=== PATIENT | male | born 1995 | race African-American/Black ===

== ENCOUNTER 2020-04-15 19:12 | Emergency (ER) | payer BC ==
[~2020-04-15] VITALS: Ht 188 cm; Wt 120.5 kg
[2020-04-15 19:16] VITALS: TEMP 98.4
[2020-04-15 20:01] LABS: BASO % 0.3 % (0.0-2.0); EOS # 0.2 (0.0-0.7); EOS % 2.7 % (0-4.0); GRAN # 5.1 (1.4-6.5); GRAN % 69.1 % (42.2-75.2); HEMATOCRIT 44.6 % (42.0-52.0); HEMOGLOBIN 15.6 g/dl (13.5-18.0); LYMPH # 1.5 (1.2-3.4); LYMPH % 20.4 % (20.0-51.0); MEAN CELL VOLUME 93 fl (80.0-100.0); MEAN CORPUSCULAR HEMOGLOBIN 32 pg (27.0-31.0); MEAN CORPUSCULAR HGB CONC 35 g/dl (33.0-37.0); MEAN PLATELET VOLUME 8.9 fl (7.4-10.4); MONO # 0.5 (0.1-0.6); MONO % 7.2 % (1.7-9.3); PLATELET COUNT 278 K/mm3 (130-400); RED BLOOD COUNT 4.82 M/mm3 (4.20-5.60); REDCELL DISTRIBUTION WIDTH-CV 12.7 % (11.5-14.5)
[2020-04-15 20:11] LABS: ALANINE AMINOTRANSFERASE 60 U/L (4-49); ALKALINE PHOSPHATASE 91 U/L (50-136); ANION GAP 9 mmol/L (7-16); AST,SGOT 70 U/L (15-37); BILIRUBIN,TOTAL 0.5 mg/dL (0.0-1.0); BLOOD UREA NITROGEN 8 mg/dL (9-20); C-REACTIVE PROTEIN 2.9 mg/dL (0.0-0.9); CALCIUM 8.6 mg/dL (8.4-10.2); CARBON DIOXIDE 26 mmol/L (22-30); CHLORIDE 105 mmol/L (98-107); CREATININE, serum 0.75 (0.66-1.25); GLUCOSE 114 mg/dL (74-106); POTASSIUM 3.6 mmol/L (3.4-5.0); SODIUM 140 mmol/L (137-145); TOTAL PROTEIN 7.8 gm/dL (6.4-8.2)
[2020-04-15 20:28] LABS: TROPONIN-I < 0.012 ng/mL (0.000-0.035)
[2020-04-15 21:02] VITALS: BP 133/78; PULSE 86
== END 2020-04-15 21:10 | disposition home or self-care (01) ==
LOC: COL.ER 19:12
PROVIDERS: Emergency Medicine
DX: R07.81 Pleurodynia (principal); F17.210 Nicotine dependence, cigarettes, uncomplicated
CPT/HCPCS: J1885; J2405; J3010; J7030

== ENCOUNTER 2020-11-09 21:27 | Emergency (ER) | payer BC ==
[~2020-11-09] VITALS: Ht 188 cm; Wt 125.0 kg
[2020-11-09 21:49] VITALS: TEMP 97.3
[2020-11-09 23:40] VITALS: BP 136/86; PULSE 92
== END 2020-11-09 23:31 | disposition home or self-care (01) ==
LOC: COL.ER 21:27
DX: S09.90XA Unspecified injury of head, initial encounter (principal); S00.531A Contusion of lip, initial encounter; S00.81XA Abrasion of other part of head, initial encounter; R07.81 Pleurodynia; F17.290 Nicotine dependence, other tobacco product, uncomplicated; W10.9XXA Fall (on) (from) unspecified stairs and steps, initial encounter

== ENCOUNTER 2020-11-13 07:38 | Emergency (ER) | payer BC ==
[~2020-11-13] VITALS: Ht 188 cm; Wt 118.2 kg
[2020-11-13 07:42] VITALS: BP 156/124; TEMP 98.2
[2020-11-13] MEDS ORDERED: AMOXICILLIN 8751 TAB PO (07:55)
[2020-11-13 08:08] VITALS: PULSE 96
== END 2020-11-13 08:08 | disposition home or self-care (01) ==
LOC: COL.ER 07:38
DX: S09.90XD Unspecified injury of head, subsequent encounter (principal); S00.531D Contusion of lip, subsequent encounter; L08.9 Local infection of the skin and subcutaneous tissue, unspecified; R09.1 Pleurisy; F17.210 Nicotine dependence, cigarettes, uncomplicated; W10.9XXD Fall (on) (from) unspecified stairs and steps, subsequent encounter

== ENCOUNTER 2021-05-10 07:14 | Inpatient (IN) | payer BC ==
[~2021-05-10] VITALS: Ht 188 cm; Wt 120.5 kg
[~2021-05-10 07:14] MED LIST: AMOXICILLIN 8751 TAB PO
[2021-05-10] MEDS ORDERED: PROTONIX 40MG T40 MG PO (07:23)
[2021-05-10] MEDS ORDERED: PRINZIDE 12.5 M1 TA1 PO (07:24)
[2021-05-10 07:55] LABS: BASO % 0.2 % (0.0-2.0); EOS # 0.1 (0.0-0.7); GRAN # 4.6 (1.4-6.5); GRAN % 71.2 % (42.2-75.2); HEMATOCRIT 43.5 % (42.0-52.0); HEMOGLOBIN 15.9 g/dl (13.5-18.0); LYMPH # 1.1 (1.2-3.4); LYMPH % 16.7 % (20.0-51.0); MEAN CELL VOLUME 91 fl (80.0-100.0); MEAN CORPUSCULAR HEMOGLOBIN 33 pg (27.0-31.0); MEAN CORPUSCULAR HGB CONC 37 g/dl (33.0-37.0); MEAN PLATELET VOLUME 9.7 fl (7.4-10.4); MONO # 0.6 (0.1-0.6); MONO % 9.4 % (1.7-9.3); PLATELET COUNT 173 K/mm3 (130-400); RED BLOOD COUNT 4.77 M/mm3 (4.20-5.60); REDCELL DISTRIBUTION WIDTH-CV 12.5 % (11.5-14.5)
[2021-05-10 08:10] LABS: ALBUMIN 4.5 gm/dL (3.5-5.0); BILIRUBIN,TOTAL 1.7 mg/dL (0.0-1.0); CALCIUM 9.3 mg/dL (8.4-10.2); CREATININE, serum 0.64 (0.66-1.25); POTASSIUM 3.8 mmol/L (3.4-5.0); TOTAL PROTEIN 8.5 gm/dL (6.4-8.2)
[2021-05-10 12:42] LABS: ALCOHOL(ethanol),MEDICAL < 10 mg/dL; CHOLESTEROL 183 mg/dL (120-200); CHOLESTEROL RISK RATIO 1.7; HDL CHOLESTEROL 106 mg/dL; LACTATE DEHYDROGENASE 816 U/L (313-618); LDL CHOLESTEROL 60 mg/dL; MAGNESIUM 1.1 mg/dL (1.6-2.3); TRIGLYCERIDE 87 mg/dL
[2021-05-10 13:06] LABS: INR 1.1 (0.8-3.0); PROTHROMBIN TIME 12.4 SECONDS (9.7-12.8)
[2021-05-10 13:15] LABS: PARTIAL THROMBOPLASTIN TIME 26.9 SECONDS (26.0-37.0)
[2021-05-10 15:44] VITALS: BP 158/108; PULSE 91; TEMP 100
[2021-05-10 17:43] VITALS: BP 158/99; PULSE 70; TEMP 97.7
[2021-05-10 21:30] VITALS: BP 157/109; PULSE 85; TEMP 98.2
[2021-05-10 23:46] VITALS: BP 131/111; PULSE 85; TEMP 99.4
[2021-05-11 03:07] VITALS: BP 142/84; PULSE 99; TEMP 99.2
--- NOTE | 2021-05-11 06:15 | NUR ---
Rested off and on this shift. Received ativan throughout the night for detox score of 6-10. Mild pain not requiring treatment. Remained NPO. Denied nausea/shortness of breath. Denies current needs. Call light in reach. Will monitor.
[2021-05-11 07:28] VITALS: BP 165/105; PULSE 88; TEMP 98.9
--- NOTE | 2021-05-11 07:38 | NUR ---
Patient is currently resting in bed. No signs of anxiety, tremors, diaphoresis, etc. Scored a 2 on CIWA due to BP being elevated. Patient given all his scheduled morning medications. Patient asking about food and when he will be able to eat. This RN informed the patient that the doctor would make that decision today when he saw him again.
[2021-05-11 07:45] LABS: BASO % 0.3 % (0.0-2.0); EOS # 0.3 (0.0-0.7); EOS % 4.9 % (0-4.0); GRAN % 69.7 % (42.2-75.2); HEMATOCRIT 39.9 % (42.0-52.0); LYMPH % 17.1 % (20.0-51.0); MEAN CORPUSCULAR HGB CONC 35 g/dl (33.0-37.0); MEAN PLATELET VOLUME 10.4 fl (7.4-10.4); MONO # 0.4 (0.1-0.6); MONO % 7.5 % (1.7-9.3); PLATELET COUNT 143 K/mm3 (130-400); RED BLOOD COUNT 4.15 M/mm3 (4.20-5.60); REDCELL DISTRIBUTION WIDTH-CV 12.3 % (11.5-14.5)
[2021-05-11 07:52] LABS: CREATININE, serum 0.61 (0.66-1.25); HEMOGLOBIN 13.8 g/dl (13.5-18.0); MAGNESIUM 1.9 mg/dL (1.6-2.3); MEAN CORPUSCULAR HEMOGLOBIN 33 pg (27.0-31.0); POTASSIUM 3.4 mmol/L (3.4-5.0)
[2021-05-11 07:53] LABS: MEAN CELL VOLUME 96 fl (80.0-100.0)
--- NOTE | 2021-05-11 09:53 | NUR ---
Initial visit; Patient thanked Director Of Retail Merchandising for looking in on him and offering God's blessings.
[2021-05-11 10:29] VITALS: BP 145/82; PULSE 84; TEMP 99
--- NOTE | 2021-05-11 11:20 | NUR ---
FATOU met with the patient to discuss discharge plan. The patient lives alone in [place]. He reports independence with ADLs and does not have any DME. The patient's PCP is Dr. Carson Lozano and he receives his medications from [facility]. He reports no difficulties obtaining his meds. The paient does not have a DPOA-HC, but he was interested in obtaining a form. FATOU provided. The patient states that he is not , does not have any children, and that his father, Americo Garcia, is still alive. He state that his mother is and that he really does not have a relationship with his father. He states that he has a girlfriend, Mary (ph#[phone]), and has her as his emergency contact. The patient plans to return home upon discharge. FATOU addressed the patient's alcohol use and discussed treatment. He has been drinking 750 ml of vodka on weekend nights. The patient reports that he is set up at [facility] and was suppose to have an appointment there today. He states that his next appointment there is next Friday. The patient was interested in a list of AA meetings in [place]. FATOU provided him with that list. He had no other concerns for FATOU and is hopeful that he can go home soon. No additional needs at this time. *Discharge plan: home*
[2021-05-11 14:43] VITALS: BP 157/44; PULSE 84; TEMP 99.1
[2021-05-11] MEDS ORDERED: ZOFRAN ODT4 MG PO (15:56)
[2021-05-11] MEDS ORDERED: ROXICODONE 55 MG/TAB PO (15:56)
--- NOTE | 2021-05-11 16:26 | NUR ---
Patient placed on low-fat diet. Only scoring on CIWA d/t elevated BP and slightly increased temp. Patient discharged and walked out of the facility by this RN at approx. 1620.
== END 2021-05-11 16:20 | disposition home or self-care (01) | DRG 439 ==
LOC: COL.ER 07:14 → MEDICAL 10:57
PROVIDERS: Family Medicine; Physician Assistant
DX: K85.20 Alcohol induced acute pancreatitis without necrosis or infection (principal); E87.1 Hypo-osmolality and hyponatremia; E66.9 Obesity, unspecified; Z68.33 Body mass index [BMI] 33.0-33.9, adult; F17.200 Nicotine dependence, unspecified, uncomplicated; K21.9 Gastro-esophageal reflux disease without esophagitis; I10 Essential (primary) hypertension; E16.2 Hypoglycemia, unspecified; E83.42 Hypomagnesemia; F10.10 Alcohol abuse, uncomplicated; Y90.0 Blood alcohol level of less than 20 mg/100 ml
CPT/HCPCS: 99223-AI; 99239; C9113; J1650; J2060; J2270; J2405; J3475; J7030; J7120; Q9967

== ENCOUNTER 2022-01-07 20:23 | Emergency (ER) | payer SELFPAY ==
[~2022-01-07] VITALS: Ht 188 cm; Wt 107.5 kg
[~2022-01-07 20:23] MED LIST changes: +PRINZIDE 12.5 M1 TA1 PO; +PROTONIX 40MG T40 MG PO; +ROXICODONE 55 MG/TAB PO; +ZOFRAN ODT4 MG PO
[2022-01-07 20:41] VITALS: TEMP 97.8
[2022-01-07 21:54] LABS: BASO % 0.6 % (0.0-2.0); EOS # 0.1 K/mm3 (0.0-0.7); EOS % 2.8 % (0.0-4.0); GRAN # 2.9 K/mm3 (1.4-6.5); GRAN % 61.9 % (42.2-75.2); HEMATOCRIT 46.1 % (42.0-52.0); HEMOGLOBIN 16.7 g/dl (13.5-18.0); LYMPH # 1.1 K/mm3 (1.2-3.4); LYMPH % 24.6 % (20.0-51.0); MEAN CELL VOLUME 93 fl (80.0-100.0); MEAN CORPUSCULAR HEMOGLOBIN 34 pg (27-31); MEAN CORPUSCULAR HGB CONC 36 g/dl (33.0-37.0); MEAN PLATELET VOLUME 8.5 fl (7.4-10.4); MONO # 0.5 K/mm3 (0.1-0.6); MONO % 9.9 % (1.7-9.3); PLATELET COUNT 190 K/mm3 (130-400); RED BLOOD COUNT 4.98 M/mm3 (4.20-5.60); REDCELL DISTRIBUTION WIDTH-CV 13.2 % (11.5-14.5)
[2022-01-07 22:07] LABS: ALANINE AMINOTRANSFERASE 98 U/L (0-55); ALBUMIN 3.5 gm/dL (3.5-5.0); ALKALINE PHOSPHATASE 103 U/L (40-150); ANION GAP 17 mmol/L (7-16); AST,SGOT 129 U/L (5-34); BLOOD UREA NITROGEN 7 mg/dL (9-21); CALCIUM 8.4 mg/dL (8.4-10.2); CARBON DIOXIDE 26 mmol/L (22-29); CHLORIDE 100 mmol/L (98-107); CREATININE, serum 0.72 mg/dL (0.72-1.25); GLUCOSE 98 mg/dL (70-99); POTASSIUM 3.3 mmol/L (3.5-4.5); SODIUM 143 mmol/L (136-145); TOTAL PROTEIN 7.5 gm/dL (6.2-8.1)
[2022-01-07 22:08] LABS: ACETAMINOPHEN < 1.0 ug/mL (10-30); SALICYLATE < 5.0 mg/dL (15.0-30.0)
[2022-01-07 22:09] LABS: ALCOHOL(ethanol),MEDICAL 341 mg/dL (0-10)
[2022-01-07 22:42] LABS: COLLECTION METHOD CLEAN CATCH
[2022-01-07 22:49] LABS: MUCOUS Present (NOT PRESENT); PH 6 (5-8); SQUAMOUS EPITHELIAL None Seen /hpf (0-10); URINE APPEARANCE Clear (CLEAR/HAZY); URINE BACTERIA None Seen /hpf (NONE SEEN); URINE BILIRUBIN Negative (NEGATIVE); URINE BLOOD Negative (NEGATIVE); URINE COLOR Yellow (YELLOW); URINE GLUCOSE Negative (NEGATIVE); URINE KETONE Trace (NEGATIVE); URINE LEUKOCYTE ESTERASE Negative (NEGATIVE); URINE NITRATE Negative (NEGATIVE); URINE PROTEIN(semi-quant) Negative (NEGATIVE); URINE RBC 0-2 /hpf (0-2); URINE UROBILINOGEN Negative (NEGATIVE)
[2022-01-07 22:57] LABS: TRICYCLIC ANTIDEPRESS URINE NEGATIVE
[2022-01-08 15:55] VITALS: BP 138/84; PULSE 96
== END 2022-01-08 15:55 | disposition home or self-care (01) ==
LOC: COL.ER 20:23
PROVIDERS: Physician Assistant
DX: R45.851 Suicidal ideations (principal); F10.129 Alcohol abuse with intoxication, unspecified; F17.200 Nicotine dependence, unspecified, uncomplicated; Z28.310 Unvaccinated for COVID-19; Y90.8 Blood alcohol level of 240 mg/100 ml or more

== ENCOUNTER 2022-02-26 18:57 | Emergency (ER) | payer SELFPAY ==
[~2022-02-26] VITALS: Ht 188 cm; Wt 106.8 kg
[2022-02-26 19:01] VITALS: TEMP 98.8
[2022-02-27 01:48] VITALS: BP 130/95; PULSE 68
== END 2022-02-27 01:51 | disposition home or self-care (01) ==
LOC: COL.ER 18:57
DX: F10.129 Alcohol abuse with intoxication, unspecified (principal); Z28.310 Unvaccinated for COVID-19

== ENCOUNTER 2023-02-02 15:20 | Emergency (ER) | payer SELFPAY ==
[~2023-02-02] VITALS: Ht 188 cm; Wt 106.8 kg
[2023-02-02 16:17] LABS: BASO % 0.4 % (0.0-2.0); EOS # 0.2 K/mm3 (0.0-0.7); EOS % 4.7 % (0.0-4.0); GRAN # 2.3 K/mm3 (1.4-6.5); GRAN % 46.9 % (42.2-75.2); HEMATOCRIT 42.4 % (42.0-52.0); HEMOGLOBIN 14.8 g/dl (13.5-18.0); LYMPH # 1.7 K/mm3 (1.2-3.4); LYMPH % 34.4 % (20.0-51.0); MEAN CELL VOLUME 97 fl (80.0-100.0); MEAN CORPUSCULAR HEMOGLOBIN 34 pg (27-31); MEAN CORPUSCULAR HGB CONC 35 g/dl (33.0-37.0); MONO # 0.7 K/mm3 (0.1-0.6); MONO % 13.4 % (1.7-9.3); PLATELET COUNT 255 K/mm3 (130-400); RED BLOOD COUNT 4.37 M/mm3 (4.20-5.60); REDCELL DISTRIBUTION WIDTH-CV 12.1 % (11.5-14.5)
[2023-02-02 16:40] LABS: ALBUMIN 3.6 gm/dL (3.5-5.0); BILIRUBIN,TOTAL 0.3 mg/dL (0.2-1.2); CALCIUM 8.6 mg/dL (8.4-10.2); CREATININE, serum 0.73 mg/dL (0.72-1.25); POTASSIUM 3.4 mmol/L (3.5-4.5); TOTAL PROTEIN 7.3 gm/dL (6.2-8.1)
[2023-02-02 16:57] LABS: COLLECTION METHOD CLEAN CATCH
[2023-02-02 17:03] LABS: SQUAMOUS EPITHELIAL None Seen /hpf (0-10); URINE BACTERIA None Seen /hpf (NONE SEEN); URINE RBC None Seen /hpf (0-2)
[2023-02-02 17:07] LABS: PH 5.5 (5.0-8.5); URINE APPEARANCE Clear (CLEAR/HAZY); URINE BLOOD Negative (NEGATIVE); URINE COLOR Yellow (YELLOW); URINE GLUCOSE Negative (NEGATIVE); URINE KETONE Negative (NEGATIVE); URINE NITRATE Negative (NEGATIVE); URINE PROTEIN(semi-quant) Negative (NEGATIVE); URINE UROBILINOGEN 0.2 E.U/dL (0.2-1.0)
[2023-02-02 17:10] LABS: TRICYCLIC ANTIDEPRESS URINE NEGATIVE
[2023-02-02 19:50] VITALS: BP 128/64; PULSE 74; TEMP 97.2
== END 2023-02-02 19:50 | disposition home or self-care (01) ==
LOC: COL.ER 15:20
PROVIDERS: Family Medicine
DX: F10.129 Alcohol abuse with intoxication, unspecified (principal); Y90.8 Blood alcohol level of 240 mg/100 ml or more; Z28.310 Unvaccinated for COVID-19
CPT/HCPCS: J7030

== ENCOUNTER 2023-08-25 22:22 | Inpatient (IN) | payer BC ==
[~2023-08-25] VITALS: Ht 188 cm; Wt 95.7 kg
[2023-08-25 22:53] LABS: BASO % 0.2 % (0.0-2.0); EOS % 0.1 % (0.0-4.0); GRAN # 8.2 K/mm3 (1.4-6.5); GRAN % 87.1 % (42.2-75.2); HEMATOCRIT 45.3 % (42.0-52.0); HEMOGLOBIN 16.2 g/dl (13.5-18.0); LYMPH # 0.6 K/mm3 (1.2-3.4); LYMPH % 6.4 % (20.0-51.0); MEAN CELL VOLUME 94 fl (80.0-100.0); MEAN CORPUSCULAR HEMOGLOBIN 34 pg (27-31); MEAN CORPUSCULAR HGB CONC 36 g/dl (33.0-37.0); MEAN PLATELET VOLUME 8.7 fl (7.4-10.4); MONO # 0.6 K/mm3 (0.1-0.6); PLATELET COUNT 201 K/mm3 (130-400); RED BLOOD COUNT 4.82 M/mm3 (4.20-5.60); REDCELL DISTRIBUTION WIDTH-CV 12.3 % (11.5-14.5)
[2023-08-25 23:39] LABS: ALBUMIN 3.9 gm/dL (3.5-5.0); BILIRUBIN,TOTAL 0.8 mg/dL (0.2-1.2); C-REACTIVE PROTEIN 0.85 mg/dL (0.00-0.50); CALCIUM 9.6 mg/dL (8.4-10.2); CREATININE, serum 0.71 mg/dL (0.72-1.25); POTASSIUM 3.9 mmol/L (3.5-4.5); TOTAL PROTEIN 7.8 gm/dL (6.2-8.1)
[2023-08-25 23:56] LABS: COLLECTION METHOD CLEAN CATCH
[2023-08-26] VITALS (16 sets, daily range): BP systolic 134–178; BP diastolic 83–114; PULSE 55–108; TEMP 97.7–102
[2023-08-26 00:15] LABS: PH 7.5 (5.0-8.5); URINE APPEARANCE Clear (CLEAR/HAZY); URINE COLOR Amber (YELLOW); URINE PROTEIN(semi-quant) 1+ (NEGATIVE)
[2023-08-26 00:16] LABS: MUCOUS Present (NOT PRESENT); SQUAMOUS EPITHELIAL 0-2 /hpf (0-10); URINE BACTERIA Occasional /hpf (NONE SEEN); URINE BLOOD Negative (NEGATIVE); URINE GLUCOSE Negative (NEGATIVE); URINE KETONE 3+ (NEGATIVE); URINE NITRATE Negative (NEGATIVE); URINE RBC None Seen /hpf (0-2); URINE UROBILINOGEN 0.2 E.U/dL (0.2-1.0)
[2023-08-26] MEDS ORDERED: ADDERALL20 MG PO (02:36)
--- NOTE | 2023-08-26 03:00 | NUR ---
Patient arrived to the floor at 0212 from ED per cart, with IV infusing well on left AC, admission assessment and intake done, medrec reviewed, reports pain to LUQ abdomen PS of 7/10, IV dilaudid given, hospital policies orientated, call light and personal items within reach, will continue to monitor.
--- NOTE | 2023-08-26 04:31 | NUR ---
Called Chicho,the HEALTHCARE APPLICATIONS ANALYST d/t patient's blood pressure is still high 172/84, still complaining of pain, received an order for dilaudid 1mg now.
[2023-08-26 06:54] LABS: INR 1.1 (0.8-3.0); PROTHROMBIN TIME 11.6 SECONDS (9.7-12.8)
[2023-08-26 06:59] LABS: PARTIAL THROMBOPLASTIN TIME 29.9 SECONDS (26.0-37.0)
[2023-08-26 07:13] LABS: ALBUMIN 3.3 gm/dL (3.5-5.0); BILIRUBIN,TOTAL 1.1 mg/dL (0.2-1.2); CREATININE, serum 0.66 mg/dL (0.72-1.25); MAGNESIUM 1.6 mg/dL (1.6-2.6); POTASSIUM 3.8 mmol/L (3.5-4.5); TOTAL PROTEIN 6.9 gm/dL (6.2-8.1)
--- NOTE | 2023-08-26 07:25 | NUR ---
Patient complained of pain to LUQ radiating to his back, PS of 10/10, medicated with IV dilaudid. He also complained of nausea, medicated with zofran. Report given to CASSIE Love.
--- NOTE | 2023-08-26 10:28 | NUR ---
PT RESTING IN BED WITH PAIN 6/10 IN LLQ. PAIN MEDICATION PROVIDED PER EMAR. PT UP TO BATHROOM WITH STEADY GAIT. PT REMAINS NPO. WILL CONTINUE TO MONITOR.
--- NOTE | 2023-08-26 11:04 | NUR ---
D: Initial visit: Knot Cutter stopped by room on rounds. Pt was resting and content. A: Pt was very tired and stated that he is trying to rest up and get better. No other needs right now. P: Knot Cutter informed pt that if he needed anything to let his nurse know. Knot Cutter will follow up as needed.
--- NOTE | 2023-08-26 14:58 | NUR ---
DISCUSSED WITH DR. ESCAMILLA PT CONTINUED PAIN DESPITE FREQUENT PRN DILAUDID. ORDERS TO D/C DILAUDID AND ORDER MORPHINE 2 MG Q4 PRN. DOSE PROVIDED. WILL CONTINUE TO MONITOR.
--- NOTE | 2023-08-26 16:28 | NUR ---
floorworker distributor was notified patient would like to speak with addiction social worker regarding resources for alcohol addiction. SW met with patient to discuss discharge planning. Patient lives in [place] and expressed the best point of contact is his boss, Felipe, P# [phone]. PCP is Dr. Lozano, pharmacy [facility]. No issues affording medications at this time. [facility] insurance. Patient does not have a DPOA-HC and does not wish to complete one at this time. Patient has no DME. Patient was independent prior to hospitalization. Patient uses [employer] or walks to and from work/appointments. Patient would like to return home at time of discharge. Patient's pain increased and wanted to wait to speak about alcohol addiction options. SW will follow up with patient on resources in the area. Discharge Plan: Home
--- NOTE | 2023-08-26 19:04 | NUR ---
report recieved from mia mcfarlane. pt resting in bed. pt reporting abd pain but states he wants to see if he can fall back asleep before taking medications. pt educated to call if his pain increases or he cannot fall back asleep, pt provided understanding. call light in reach. all needs met at this time.
--- NOTE | 2023-08-26 20:45 | NUR ---
pt still c/o abd and lower back pain. called gianni zavala. new order for 2mg iv morphine now. pt rating pain 04/10.
--- NOTE | 2023-08-26 21:35 | NUR ---
second dose of morphine has provided pt relief. pt now rating pain 4/10. updated door to door sales representative sally of relief and pt vital signs. no new orders at this time.
[2023-08-26 22:34] LABS: HEMATOCRIT 45.7 % (42.0-52.0); HEMOGLOBIN 16.5 g/dl (13.5-18.0); MEAN CELL VOLUME 93 fl (80.0-100.0); MEAN CORPUSCULAR HEMOGLOBIN 34 pg (27-31); MEAN CORPUSCULAR HGB CONC 36 g/dl (33.0-37.0); MEAN PLATELET VOLUME 9.4 fl (7.4-10.4); PLATELET COUNT 173 K/mm3 (130-400); RED BLOOD COUNT 4.91 M/mm3 (4.20-5.60)
--- NOTE | 2023-08-26 22:55 | NUR ---
pt off the floor for ct.
[2023-08-26 22:56] LABS: BILIRUBIN,TOTAL 1.6 mg/dL (0.2-1.2); CALCIUM 9.1 mg/dL (8.4-10.2); CREATININE, serum 0.75 mg/dL (0.72-1.25); POTASSIUM 4.2 mmol/L (3.5-4.5); TOTAL PROTEIN 6.8 gm/dL (6.2-8.1)
[2023-08-26 23:00] LABS: BAND 25 % (0-10); LYMPHOCYTE 5 % (20.0-51.0); NEUTROPHILS 67 % (42.0-75.2); PLATELET ESTIMATE NORMAL (NORMAL)
--- NOTE | 2023-08-26 23:14 | NUR ---
shift assessment complete, see documentation. pt struggling with pain control today but seems to feel better after the prn morphine administration per orders. pt is now back in his room from ct. abx started to left ac iv, pt tolerating well. updated dump motorman sally. no new orders at this time. call light in reach. all needs met at this time.
[2023-08-27] VITALS (18 sets, daily range): BP systolic 134–167; BP diastolic 76–97; PULSE 89–113; TEMP 98.6–101.3
--- NOTE | 2023-08-27 00:09 | NUR ---
pt running temp of 102.0. prn rectal tylenol administered per orders. pt tolerated well.
--- NOTE | 2023-08-27 03:11 | NUR ---
pt reported pain to abd rating a 5/10. prn morphine administered around 0230. pt now resting well. equal and unlabored breaths noted.
[2023-08-27 06:18] LABS: HEMATOCRIT 46.9 % (42.0-52.0); HEMOGLOBIN 16.8 g/dl (13.5-18.0); MEAN CELL VOLUME 93 fl (80.0-100.0); MEAN CORPUSCULAR HEMOGLOBIN 33 pg (27-31); MEAN CORPUSCULAR HGB CONC 36 g/dl (33.0-37.0); MEAN PLATELET VOLUME 9.8 fl (7.4-10.4); PLATELET COUNT 170 K/mm3 (130-400); RED BLOOD COUNT 5.07 M/mm3 (4.20-5.60); REDCELL DISTRIBUTION WIDTH-CV 12.1 % (11.5-14.5)
--- NOTE | 2023-08-27 06:18 | NUR ---
pt continues with low grade temp. pt is asymptomatic and is not diaphoretic. call light in reach. all needs met at this time.
[2023-08-27 06:33] LABS: CALCIUM 8.8 mg/dL (8.4-10.2); CREATININE, serum 0.72 mg/dL (0.72-1.25); POTASSIUM 4.3 mmol/L (3.5-4.5)
[2023-08-27 07:13] LABS: BAND 32 % (0-10); LYMPHOCYTE 11 % (20.0-51.0); NEUTROPHILS 51 % (42.0-75.2); PLATELET ESTIMATE NORMAL (NORMAL)
--- NOTE | 2023-08-27 08:02 | NUR ---
pt a&ox4 resting in bed. meds given and assessment complete. pt rates pain a 3/10 in his lower abdomen, denies nausea and vomiting. pt wanting to eat this morning. fluids infusing into left ac at 125ml/hr. tylenol given for headache and temp of 100.2. vss. pt denies needs at this time. call light in reach.
--- NOTE | 2023-08-27 09:08 | NUR ---
farmworker bulbs provided local resources for the community as well as information on local AA meetings. SW provided [facility] and information for the [facility] bus as patient uses [employer] or walks to appointments. Patient has no further questions or concerns. DIscharge Plan: Home
[2023-08-27 10:36] LABS: CREATININE, serum 0.73 mg/dL (0.72-1.25); POTASSIUM 4.3 mmol/L (3.5-4.5)
--- NOTE | 2023-08-27 12:50 | NUR ---
Several visit attempts; Patient continues to be asleep. Head Of Strategy left a card that lets patient know that Spiritual Care is available to patient at our hospital and Head Of Strategy offered God's blessings and signed her name so patient would know to have his nurse contact that Head Of Strategy should he wish to receive Spiritual Care.
[2023-08-27 14:39] LABS: CALCIUM 8.6 mg/dL (8.4-10.2); CREATININE, serum 0.7 mg/dL (0.72-1.25); POTASSIUM 3.9 mmol/L (3.5-4.5)
[2023-08-27 18:33] LABS: CALCIUM 8.9 mg/dL (8.4-10.2); CREATININE, serum 0.76 mg/dL (0.72-1.25)
--- NOTE | 2023-08-27 18:42 | NUR ---
called sally VASQUEZ about pts BP of 157/104, no new orders
--- NOTE | 2023-08-27 19:08 | NUR ---
report received from anand mcfarlane. pt resting in bed. equal and unlabored breaths noted. no outward signs of pain noted. call light in reach. all needs met at this time.
--- NOTE | 2023-08-27 20:12 | NUR ---
shift assessment complete, see documentation. prn tylenol administered for low grade temp. pt states he is having minimal pain right now and does not need prn pain meds. pt tolerated hs meds well. ns running at 125ml/hr to left ac. pt is not diaphoretic and denies sob. call light in reach. all needs met at this time.
[2023-08-27 22:02] LABS: CREATININE, serum 0.62 mg/dL (0.72-1.25); POTASSIUM 3.4 mmol/L (3.5-4.5)
--- NOTE | 2023-08-27 23:08 | NUR ---
pt reporting 8/10 abd pain. prn morphine administered per orders. call light in reach. all needs met at this time.
[2023-08-28] VITALS (15 sets, daily range): BP systolic 130–168; BP diastolic 89–108; PULSE 81–104; TEMP 98.3–102.1
--- NOTE | 2023-08-28 00:15 | NUR ---
pt still c/o abd pain. called gianni zavala. new order for 2mg iv morphine now. abx and prn administered per orders. call light in reach. all needs met at this time.
--- NOTE | 2023-08-28 00:54 | NUR ---
pt now resting with eyes closed, equal and unlabored breaths noted. no outward signs of pain present. call light in reach. all needs met at this time.
[2023-08-28 01:06] LABS: CALCIUM 8.4 mg/dL (8.4-10.2); CREATININE, serum 0.69 mg/dL (0.72-1.25); POTASSIUM 4.6 mmol/L (3.5-4.5)
--- NOTE | 2023-08-28 03:53 | NUR ---
pt continues with low grade temp. prn tylenol administered per orders. call light in reach. all needs met at this time.
[2023-08-28 06:43] LABS: BASO % 0.2 % (0.0-2.0); EOS # 0.1 K/mm3 (0.0-0.7); EOS % 0.7 % (0.0-4.0); GRAN # 11.6 K/mm3 (1.4-6.5); HEMATOCRIT 43.1 % (42.0-52.0); HEMOGLOBIN 15.1 g/dl (13.5-18.0); LYMPH # 0.8 K/mm3 (1.2-3.4); LYMPH % 5.9 % (20.0-51.0); MEAN CELL VOLUME 94 fl (80.0-100.0); MEAN CORPUSCULAR HEMOGLOBIN 33 pg (27-31); MEAN CORPUSCULAR HGB CONC 35 g/dl (33.0-37.0); MEAN PLATELET VOLUME 9.3 fl (7.4-10.4); MONO # 1.2 K/mm3 (0.1-0.6); MONO % 8.8 % (1.7-9.3); PLATELET COUNT 149 K/mm3 (130-400); RED BLOOD COUNT 4.59 M/mm3 (4.20-5.60); REDCELL DISTRIBUTION WIDTH-CV 11.9 % (11.5-14.5)
[2023-08-28 07:00] LABS: CALCIUM 8.5 mg/dL (8.4-10.2); CREATININE, serum 0.68 mg/dL (0.72-1.25); POTASSIUM 3.5 mmol/L (3.5-4.5)
[2023-08-28 08:42] LABS: CHOLESTEROL RISK RATIO 2.1
--- NOTE | 2023-08-28 08:50 | NUR ---
pt a&ox3 resting in bed. meds given and assessment complete. pt rates pain a 2/10. nicotine patch placed to right upper arm. NS infusing into left ac. pt denies needs at this time. call light in reach.
--- NOTE | 2023-08-28 19:27 | NUR ---
report received from anand mcfarlane. pt resting in bed watching a movie. pt reports he is not feeling pain right now. pt denies headache. pt is not diaphoretic and afebrile at the moment. call light in reach. all needs met at this time.
--- NOTE | 2023-08-28 21:09 | NUR ---
shift assessment complete, see documentation. pt reporting 5/10 pain, 2mg prn morphine iv administered per orders. pt abd is less distended tonight than the two previous. pt reports he has felt better today than previous days. ivf continue running to left ac without issue. pt tolerated hs meds. call light in reach. all needs met at this time.
--- NOTE | 2023-08-28 22:32 | NUR ---
pt calling for increased pain. pt rating abd pain /10. called gianni zavala. new order for 2mg iv morphine now. morphine administered per orders. pt resting in bed. call light in reach. all needs met at this time.
[2023-08-29] VITALS (14 sets, daily range): BP systolic 142–162; BP diastolic 89–112; PULSE 71–88; TEMP 97.9–99.5
--- NOTE | 2023-08-29 05:39 | NUR ---
pt has slept well since last prn morphine dose. pt continues without outward signs of pain. call light in reach. all needs met at this time.
[2023-08-29 06:26] LABS: BASO % 0.3 % (0.0-2.0); EOS # 0.3 K/mm3 (0.0-0.7); EOS % 2.5 % (0.0-4.0); GRAN # 9.2 K/mm3 (1.4-6.5); GRAN % 75.5 % (42.2-75.2); HEMATOCRIT 38.5 % (42.0-52.0); HEMOGLOBIN 13.3 g/dl (13.5-18.0); LYMPH # 1.2 K/mm3 (1.2-3.4); LYMPH % 9.8 % (20.0-51.0); MEAN CELL VOLUME 95 fl (80.0-100.0); MEAN CORPUSCULAR HEMOGLOBIN 33 pg (27-31); MEAN CORPUSCULAR HGB CONC 35 g/dl (33.0-37.0); MEAN PLATELET VOLUME 9.3 fl (7.4-10.4); MONO # 1.4 K/mm3 (0.1-0.6); MONO % 11.3 % (1.7-9.3); PLATELET COUNT 172 K/mm3 (130-400); RED BLOOD COUNT 4.04 M/mm3 (4.20-5.60); REDCELL DISTRIBUTION WIDTH-CV 11.8 % (11.5-14.5)
[2023-08-29 06:42] LABS: CALCIUM 8.3 mg/dL (8.4-10.2); CREATININE, serum 0.63 mg/dL (0.72-1.25); POTASSIUM 3.4 mmol/L (3.5-4.5)
--- NOTE | 2023-08-29 09:17 | NUR ---
pt a&ox3 resting in bed. meds given and assessment complete. pt rates back pain a /10, morphine given per emar. vss. pt afebrile. denies fevers/chills. nicotine patch to GAGAN. fluids infusing at 125ml/hr into left ac. pt denies needs at this time. call light in reach.
[2023-08-30 01:00] VITALS: BP_SYST 162
--- NOTE | 2023-08-30 01:56 | NUR ---
NURSING SHIFT ASSESSMENT COMPLETED. THE PATIENT WAS ALERT AND ORIENTED. THE PATIENT IS TOLERATING HIS CLEAR LIQUID DIET WELL. THE PATIENT DOES REPORT LLQ PAIN AND IS RECEIVING NORCO EVERY 6 HOURS NEEDED. THE PLAN OF CARE AND EVENING MEDICATIONS REVIEWED. NO NEEDS AT THIS TIME. CALL LIGHT AVAILABLE. PATIENT UP INDEPENDENTLY IN THE ROOM.
[2023-08-30 04:00] VITALS: BP 174/96; PULSE 70; TEMP 98.6
[2023-08-30 05:00] VITALS: BP_SYST 174
--- NOTE | 2023-08-30 06:24 | NUR ---
PATIENTS PIV WAS LEAKING WHEN FLUSHED. THE PIV HAD TO BE REMOVED. DR. SILVA CALLED AND OKAY TO LEAVE IV OUT AT THIS TIME. DR. SILVA WILL RE-EVALUATE DURING ROUNDS.
[2023-08-30 07:23] VITALS: BP 158/103; PULSE 81; TEMP 98.2
--- NOTE | 2023-08-30 07:47 | NUR ---
PT LAYING IN BED, ALERT AND ORIENTEDX4. NO COMPLAINTS OF PAIN AT THIS TIME AFTER GETTING PAIN PILL. NO NAUSEA/VOMITTING. PT STATES THAT THEY TOLERATED EATING A SANDWHICH LAST NIGHT. NO FEVER THIS MORNING. ASSESSED. CALL LIGHT WITHIN REACH.
[2023-08-30 08:24] VITALS: BP_SYST 158
[2023-08-30 08:33] LABS: BASO % 0.3 % (0.0-2.0); EOS # 0.4 K/mm3 (0.0-0.7); EOS % 4.6 % (0.0-4.0); GRAN # 5.7 K/mm3 (1.4-6.5); GRAN % 65.6 % (42.2-75.2); HEMOGLOBIN 13.5 g/dl (13.5-18.0); LYMPH # 1.3 K/mm3 (1.2-3.4); LYMPH % 14.6 % (20.0-51.0); MEAN CELL VOLUME 91 fl (80.0-100.0); MEAN CORPUSCULAR HEMOGLOBIN 33 pg (27-31); MEAN CORPUSCULAR HGB CONC 37 g/dl (33.0-37.0); MONO # 1.2 K/mm3 (0.1-0.6); PLATELET COUNT 209 K/mm3 (130-400); RED BLOOD COUNT 4.04 M/mm3 (4.20-5.60); REDCELL DISTRIBUTION WIDTH-CV 11.5 % (11.5-14.5)
[2023-08-30 08:34] LABS: HEMATOCRIT 36.8 % (42.0-52.0)
[2023-08-30 08:46] LABS: ALBUMIN 2.4 gm/dL (3.5-5.0); BILIRUBIN,TOTAL 0.7 mg/dL (0.2-1.2); CALCIUM 8.4 mg/dL (8.4-10.2); CREATININE, serum 0.59 mg/dL (0.72-1.25); POTASSIUM 3.2 mmol/L (3.5-4.5); TOTAL PROTEIN 6.2 gm/dL (6.2-8.1)
[2023-08-30] MEDS ORDERED: CIPRO 500MG TA500 MG PO (09:25)
[2023-08-30] MEDS ORDERED: FLAGYL500 MG PO (09:25)
[2023-08-30] MEDS ORDERED: ZOFRAN ODT4 MG PO (09:26)
[2023-08-30] MEDS ORDERED: NORVASC 10MG10 MG PO (09:29)
[2023-08-30] MEDS ORDERED: NORCO 325 MG-51 TAB PO (09:30)
--- NOTE | 2023-08-30 10:17 | NUR ---
PT HAS DISCHARGE ORDERS. WENT OVER DISCHARGE PAPERWORK WITH PT. THIS NURSE ESCORTED PT OUT.
== END 2023-08-30 10:18 | disposition home or self-care (01) | DRG 871 ==
LOC: COL.ER 22:22 → SURG 08-26 01:25
PROVIDERS: Nurse Practitioner Family; Nurse Practitioner Primary Care; Physician Assistant; ADMIT Internal Medicine
DX: A41.9 Sepsis, unspecified organism (principal); K85.20 Alcohol induced acute pancreatitis without necrosis or infection; E87.1 Hypo-osmolality and hyponatremia; F10.20 Alcohol dependence, uncomplicated; I10 Essential (primary) hypertension; F90.9 Attention-deficit hyperactivity disorder, unspecified type; F17.210 Nicotine dependence, cigarettes, uncomplicated; Z20.822 Contact with and (suspected) exposure to COVID-19; E86.9 Volume depletion, unspecified; B96.89 Other specified bacterial agents as the cause of diseases classified elsewhere
CPT/HCPCS: C9113; J0360; J1170; J1650; J1885; J2185; J2270; J2405; J2543; J3475; J7030; J7120; Q9967

== ENCOUNTER 2024-03-09 00:16 | Inpatient (IN) | payer BC ==
[2024-03-09] VITALS (13 sets, daily range): BP systolic 138–170; BP diastolic 75–97; PULSE 49–94; TEMP 98.1–98.6
[~2024-03-09] VITALS: Ht 188 cm; Wt 91.2 kg
[~2024-03-09 00:16] MED LIST changes: +ADDERALL20 MG PO; +CIPRO 500MG TA500 MG PO; +FLAGYL500 MG PO; +NORCO 325 MG-51 TAB PO; +NORVASC 10MG10 MG PO
[2024-03-09 00:45] LABS: BASO % 0.1 % (0.0-2.0); EOS # 0.1 K/mm3 (0.0-0.7); EOS % 0.7 % (0.0-4.0); GRAN # 4.9 K/mm3 (1.4-6.5); GRAN % 72.3 % (42.2-75.2); HEMATOCRIT 44.4 % (42.0-52.0); HEMOGLOBIN 15.6 g/dl (13.5-18.0); LYMPH # 1.3 K/mm3 (1.2-3.4); LYMPH % 18.3 % (20.0-51.0); MEAN CELL VOLUME 92 fl (80.0-100.0); MEAN CORPUSCULAR HEMOGLOBIN 32 pg (27-31); MEAN CORPUSCULAR HGB CONC 35 g/dl (33.0-37.0); MONO # 0.6 K/mm3 (0.1-0.6); MONO % 8.5 % (1.7-9.3); PLATELET COUNT 232 K/mm3 (130-400); RED BLOOD COUNT 4.81 M/mm3 (4.20-5.60); REDCELL DISTRIBUTION WIDTH-CV 12.6 % (11.5-14.5)
[2024-03-09] MEDS ORDERED: NS 1,000 ML IV ONE ×2 (00:45→01:30)
[2024-03-09] MEDS ORDERED: Ondansetron 4 MG/2 ML VIAL IV ONE (00:45)
[2024-03-09 01:03] LABS: ALANINE AMINOTRANSFERASE 46 U/L (0-55); ALBUMIN 4.1 g/dL (3.5-5.0); ALKALINE PHOSPHATASE 96 U/L (40-150); ANION GAP 15 mmol/L (7-16); AST,SGOT 63 U/L (5-34); BILIRUBIN,TOTAL 1.2 mg/dL (0.2-1.2); BLOOD UREA NITROGEN 5 mg/dL (9-21); CALCIUM 9.5 mg/dL (8.4-10.2); CHLORIDE 99 mEq/L (98-107); CREATININE, serum 0.73 mg/dL (0.72-1.25); GLUCOSE 86 mg/dL (70-99); LIPASE 243 U/L (8-78); POTASSIUM 3.3 mEq/L (3.5-4.5); SODIUM 139 mEq/L (136-145); TOTAL PROTEIN 7.9 g/dl (6.2-8.1)
[2024-03-09 01:11] LABS: TROPONIN-I < 0.010 ng/mL (0.00-0.033)
[2024-03-09] MEDS ORDERED: Morphine 4 MG/ML VIAL IV ONE (01:30)
[2024-03-09] MEDS ORDERED: Iohexol 300 - 100 ML VIAL IV ONE (01:31)
[2024-03-09] MEDS ORDERED: NS 55 ML IV ONE (01:32)
[2024-03-09] MEDS ORDERED: Ondansetron 4 MG/2 ML VIAL IV PRN (01:45)
[2024-03-09] MEDS ORDERED: NS 1,000 ML IV SCH (01:45)
[2024-03-09] MEDS ORDERED: HYDROmorphone 0.5 MG/0.5 ML SYRINGE IV PRN ×2 (01:45→05:45)
[2024-03-09 01:59] LABS: PROTHROMBIN TIME 11.3 SECONDS (9.7-12.8)
[2024-03-09 02:07] LABS: MAGNESIUM 1.3 mg/dL (1.6-2.6); PHOSPHOROUS 3.7 mg/dL (2.3-4.7)
[2024-03-09] MEDS ORDERED: LORazepam 1 MG TAB PO PRN (02:45)
[2024-03-09] MEDS ORDERED: Mag/Al Hydrox/Simeth Susp 30 ML CUP PO PRN (02:45)
[2024-03-09] MEDS ORDERED: LORazepam 2 MG/ML 1 ML VIAL IV PRN (02:45)
[2024-03-09] MEDS ORDERED: LORazepam 2 MG/ML 1 ML VIAL IM PRN (02:45)
[2024-03-09] MEDS ORDERED: Folic Acid 1 MG,Thiamine 200 MG in NS 1,000 ML IV ONE (02:45)
[2024-03-09] MEDS ORDERED: Magnesium Sulfate 4% 50 ML IV ONE (03:00)
[2024-03-09] MEDS ORDERED: hydrALAZINE 20 MG/ML 1 ML VIAL IV PRN (03:00)
[2024-03-09] MEDS ORDERED: Potassium Chloride 100 ML IV SCH (03:00)
[2024-03-09] MEDS ORDERED: *Potassium Replacement Protocol MC SCH (03:00)
[2024-03-09] MEDS ORDERED: NORVASC 10MG10 MG PO (03:51)
[2024-03-09 07:24] LABS: CHOLESTEROL RISK RATIO 1.6
[2024-03-09] MEDS ORDERED: Multivitamin TAB PO SCH (08:00)
[2024-03-09 08:05] LABS: COLLECTION METHOD CLEAN CATCH
[2024-03-09 08:11] LABS: PH 6.5 (5.0-8.5); URINE APPEARANCE CLEAR (CLEAR/HAZY); URINE BLOOD NEGATIVE (NEGATIVE); URINE COLOR ORANGE (YELLOW); URINE GLUCOSE NEGATIVE (NEGATIVE); URINE KETONE 2+ (NEGATIVE); URINE NITRATE NEGATIVE (NEGATIVE); URINE PROTEIN(semi-quant) NEGATIVE (NEGATIVE); URINE UROBILINOGEN 0.2 E.U/dL (0.2-1.0)
[2024-03-09] MEDS ORDERED: amLODIPine 5 MG TAB PO ONE (08:45)
[2024-03-09] MEDS ORDERED: amLODIPine 5 MG TAB PO SCH (09:00)
[2024-03-09] MEDS ORDERED: Pantoprazole 40 MG in NS 10 ML IV SCH (09:00)
[2024-03-09] MEDS ORDERED: Folic Acid 1 MG TAB PO SCH (09:00)
[2024-03-09] MEDS ORDERED: Magnesium Sulfate 4 GM/50 ML IV SOLN IV SCH (09:00)
[2024-03-09] MEDS ORDERED: Magnesium Oxide 400 MG TAB PO SCH (17:00)
[2024-03-09 19:22] LABS: TRICYCLIC ANTIDEPRESS URINE NEGATIVE (NEGATIVE)
[2024-03-10] VITALS (24 sets, daily range): BP systolic 130–167; BP diastolic 49–103; PULSE 66–95; TEMP 97.8–98.8
[2024-03-10 06:53] LABS: BASO % 0.2 % (0.0-2.0); EOS # 0.2 K/mm3 (0.0-0.7); EOS % 3.5 % (0.0-4.0); GRAN # 4.5 K/mm3 (1.4-6.5); GRAN % 73.9 % (42.2-75.2); HEMATOCRIT 47.6 % (42.0-52.0); HEMOGLOBIN 16.6 g/dl (13.5-18.0); LYMPH # 0.8 K/mm3 (1.2-3.4); MEAN CELL VOLUME 94 fl (80.0-100.0); MEAN CORPUSCULAR HEMOGLOBIN 33 pg (27-31); MEAN CORPUSCULAR HGB CONC 35 g/dl (33.0-37.0); MEAN PLATELET VOLUME 9.5 fl (7.4-10.4); MONO # 0.6 K/mm3 (0.1-0.6); MONO % 9.1 % (1.7-9.3); PLATELET COUNT 208 K/mm3 (130-400); RED BLOOD COUNT 5.04 M/mm3 (4.20-5.60); REDCELL DISTRIBUTION WIDTH-CV 12.5 % (11.5-14.5)
[2024-03-10 07:15] LABS: ANION GAP 13 mmol/L (7-16); CALCIUM 8.8 mg/dL (8.4-10.2); CHLORIDE 97 mEq/L (98-107); CREATININE, serum 0.64 mg/dL (0.72-1.25); POTASSIUM 3.5 mEq/L (3.5-4.5); SODIUM 133 mEq/L (136-145)
[2024-03-10 07:23] LABS: BLOOD UREA NITROGEN < 5 mg/dL (9-21); GLUCOSE 69 mg/dL (70-99)
[2024-03-10] MEDS ORDERED: Dextrose (Glucose) 15 GM (4 x 3.75 GM) Chewable TABLET PACK PO PRN (07:30)
[2024-03-10] MEDS ORDERED: Glucagon 1 MG VIAL IM PRN (07:30)
[2024-03-10] MEDS ORDERED: Dextrose 50% Water 25 GM/50 ML SYRINGE IV PRN (07:30)
[2024-03-10] MEDS ORDERED: Potassium Bicarbonate/Citrate 20 MEQ Effervescent TAB PO SCH (08:00)
[2024-03-10] MEDS ORDERED: amLODIPine 10 MG TAB PO SCH (09:00)
[2024-03-10] MEDS ORDERED: Thiamine 100 MG TAB PO SCH (09:00)
[2024-03-11] VITALS (14 sets, daily range): BP systolic 119–170; BP diastolic 87–106; PULSE 58–82; TEMP 97.7–98.6
[2024-03-11 06:30] LABS: BASO % 0.2 % (0.0-2.0); EOS # 0.3 K/mm3 (0.0-0.7); EOS % 5.7 % (0.0-4.0); GRAN # 2.7 K/mm3 (1.4-6.5); GRAN % 57.3 % (42.2-75.2); HEMATOCRIT 46.9 % (42.0-52.0); HEMOGLOBIN 16.2 g/dl (13.5-18.0); LYMPH # 1.1 K/mm3 (1.2-3.4); MEAN CELL VOLUME 95 fl (80.0-100.0); MEAN CORPUSCULAR HEMOGLOBIN 33 pg (27-31); MEAN CORPUSCULAR HGB CONC 35 g/dl (33.0-37.0); MEAN PLATELET VOLUME 9.5 fl (7.4-10.4); MONO # 0.6 K/mm3 (0.1-0.6); MONO % 12.6 % (1.7-9.3); PLATELET COUNT 189 K/mm3 (130-400); RED BLOOD COUNT 4.94 M/mm3 (4.20-5.60); REDCELL DISTRIBUTION WIDTH-CV 12.4 % (11.5-14.5)
[2024-03-11 06:49] LABS: CALCIUM 9.4 mg/dL (8.4-10.2); CREATININE, serum 0.69 mg/dL (0.72-1.25); POTASSIUM 3.9 mEq/L (3.5-4.5)
[2024-03-11] MEDS ORDERED: Potassium Bicarbonate/Citrate 20 MEQ Effervescent TAB PO ONE (07:45)
[2024-03-11] MEDS ORDERED: NORVASC 10MG10 MG PO (14:01)
[2024-03-11] MEDS ORDERED: NATURE'S BLEND100 M2 PO (14:02)
[2024-03-11] MEDS ORDERED: FOLIC ACID 11 MG/TA1 PO (14:02)
[2024-03-11] MEDS ORDERED: DUO-KAPS1 CAP PO (14:02)
== END 2024-03-11 15:36 | disposition home or self-care (01) | DRG 440 ==
LOC: COL.ER 00:16 → MEDICAL 01:50
PROVIDERS: Nurse Practitioner Family; Nurse Practitioner Primary Care; Physician Assistant; ADMIT Internal Medicine
DX: K85.20 Alcohol induced acute pancreatitis without necrosis or infection (principal); K76.0 Fatty (change of) liver, not elsewhere classified; E16.2 Hypoglycemia, unspecified; F19.10 Other psychoactive substance abuse, uncomplicated; E87.6 Hypokalemia; E83.42 Hypomagnesemia; I10 Essential (primary) hypertension; Y90.0 Blood alcohol level of less than 20 mg/100 ml; F90.9 Attention-deficit hyperactivity disorder, unspecified type; F17.210 Nicotine dependence, cigarettes, uncomplicated; F10.10 Alcohol abuse, uncomplicated; F12.10 Cannabis abuse, uncomplicated
CPT/HCPCS: J0360; J0780; J1170; J1650; J2270; J2405; J2470; J3411; J3475; J3480; J7030; Q9967